=== PATIENT | male | born 1940 | race Caucasian/White ===

== ENCOUNTER → 2017-10-31 | Outpatient (CLI) | payer MEDICARE, BC ==
[~2017-10-31] MED LIST: CHOL200074 PO; ESOM20CA31 PO; GINK40CA PO; MULT-1203 PO; NEX40PT PO; TAMS0.4C70 PO; VARD20TA31 PO; ZINC30TA5 PO
[2017-10-31 09:22] LABS: PLATELET COUNT, AUTOMATED 202 K/uL (150-450)
[2017-10-31 11:54] LABS: LDL CHOLESTEROL 102 mg/dl
== END ==
LOC: LAB 08:41
PROVIDERS: ATTEND Internal Medicine
DX: Z12.5 Encounter for screening for malignant neoplasm of prostate (principal); N40.0 Benign prostatic hyperplasia without lower urinary tract symptoms; R19.7 Diarrhea, unspecified; K21.9 Gastro-esophageal reflux disease without esophagitis; E78.5 Hyperlipidemia, unspecified
CPT/HCPCS: 36415; 81001; 82274; 82306; 83630; 84443; 85025; 87045; 87177; 87205; 87324; 87449; G0103; 82040; 82247; 82310; 82374; 82435; 82465; 82565; 82947; 83718; 84075; 84132; 84153; 84155; 84295; 84450; 84460; 84478; 84520

== ENCOUNTER → 2018-05-29 | Outpatient (CLI) | payer MEDICARE, BC ==
[~2018-05-29] MED LIST changes: +DOXY-179 PO; +NYST15CR33 TP
[2018-05-29 09:19] LABS: PLATELET COUNT, AUTOMATED 199 K/uL (150-450)
--- NOTE | 2018-05-29 10:36 | RADIOLOGY IMAGING REPORT ---
FACILITY: [facility] PATIENT NAME: Colton Gunderson : 1940 MR: [id number] V: [id number] EXAM DATE: ORDERING PHYSICIAN: JONAS DOBSON TECHNOLOGIST: Location: [facility] - [place] Patient: Colton Gunderson : 1940 Visit/Account:[id number] Date of Sevice: 05/29/2018 TOE RIGHT FOOT GREAT TOE HISTORY: cellulitis rt. big toe Additional history: None COMPARISON: None. FINDINGS: Three views right first toe. Osseous structures are unremarkable. No radiographic evidence of osteo myelitis. There is advanced joint space narrowing at the first MTP joint with associated osteophytos is. Soft tissues are unremarkable without evidence of air within the soft tissues. IMPRESSION: Right first MTP osteoarthropathy. No acute pathology identified. Report Dictated By: Piyush Carballo MD at 05/29/2018 10:30 AM Report E-Signed By: Piyush Carballo MD at 05/29/2018 10:32 AM WSN:[id number]
== END ==
LOC: LAB 08:52
PROVIDERS: ATTEND Internal Medicine
DX: M19.071 Primary osteoarthritis, right ankle and foot (principal)
CPT/HCPCS: 36415; 82040; 82247; 82310; 82374; 82435; 82565; 82947; 84075; 84132; 84155; 84295; 84450; 84460; 84520; 84550; 85025; 85651; 86140

== ENCOUNTER → 2018-10-10 | Outpatient (CLI) | payer MEDICARE, BC ==
[~2018-10-10] MED LIST changes: +MELO-207 PO; +PRED-420 PO; +TAMS0.4C25 PO
[2018-10-10 10:10] LABS: PLATELET COUNT, AUTOMATED 197 K/uL (150-450)
[2018-10-10 10:23] LABS: LDL CHOLESTEROL 104 mg/dl
--- NOTE | 2018-10-10 10:51 | EKG ---
[place] [facility] [place] NAME: ATUL PRINCE : [id number] MR: [id number] V: [id number] EXAM DATE: ORDERING PHYSICIAN: JONAS DOBSON TECHNOLOGIST: [place] Test Reason : SOB Blood Pressure : / mmHG Vent. Rate : 050 BPM Atrial Rate : 050 BPM P-R Int : 394 ms QRS Dur : 110 ms QT Int : 462 ms P-R-T Axes : 041 -59 009 degrees QTc Int : 421 ms Sinus bradycardia with 1st degree AV block Left anterior fascicular block Septal infarct , age undetermined Abnormal ECG No previous ECGs available Confirmed by JONAS DOBSON ([id number]) on 10/15/2018 3:45:17 PM Referred By: MAVERICK Confirmed By:JONAS DOBSON
--- NOTE | 2018-10-10 11:12 | RADIOLOGY IMAGING REPORT ---
FACILITY: [facility] - [place] PATIENT NAME: Colton Gunderson : 1940 MR: [id number] V: [id number] EXAM DATE: ORDERING PHYSICIAN: JONAS DOBSON TECHNOLOGIST: Location[place] [facility] [place] Patient: Colton Gunderson : 1940 Visit/Account:[id number] Date of Sevice: 10/10/2018 Exam type: TOE RIGHT FOOT GREAT TOE History: redness rt big toe Comparison: May 29, 2018. Findings: Three views were submitted. Severe joint space narrowing at the right first MTP joint again noted. There is mild surrounding soft tissue swelling. There is mild to moderate narrowing of the IP joint right great toe appearing similar to the prior study with mild subchondral erosions seen on both side s of the joint space. There is no plain film evidence of osteomyelitis IMPRESSION: 1. 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 There is mild soft tissue swelling present which can be seen with gout although given the severe joint space narrowing osteophyte arthritis wou ld be a more likely diagnosis Mild to moderate posterior arthritis of the IP joint right great toe also noted Report Dictated By: Chelsey Mcdaniels MD at 10/10/2018 11:01 AM Report E-Signed By: Chelsey Mcdaniels MD at 10/10/2018 11:04 AM WSN:[email or web address]
== END ==
LOC: LAB 09:43
PROVIDERS: ATTEND Internal Medicine
DX: R00.1 Bradycardia, unspecified (principal); R94.31 Abnormal electrocardiogram [ECG] [EKG]; M10.9 Gout, unspecified; M19.071 Primary osteoarthritis, right ankle and foot
CPT/HCPCS: 36415; 82040; 82247; 82310; 82374; 82435; 82465; 82565; 82947; 83718; 83880; 84075; 84132; 84153; 84155; 84295; 84443; 84450; 84460; 84478; 84520; 84550; 85025; 85651; 86140; 86200; 86430

== ENCOUNTER → 2018-10-17 | Outpatient (CLI) | payer MEDICARE, BC ==
--- NOTE | 2018-10-18 21:22 | RT HOLTER TEST ---
FACILITY: [facility] - [place] PATIENT NAME: ATUL PRINCE : [id number] MR: [id number] V: [id number] EXAM DATE: ORDERING PHYSICIAN: JONAS DOBSON TECHNOLOGIST: MICHAEL Hook-up date: 2018-10-17 08:07:00 Duration: 25:30:00 Test Indications: BRADYCARDIA Medications: N/A 28148 QRS complexes 419 Ventricular ectopics which represent <1 % of total QRS comp. 316 Supraventricular ectopics which represent <1 % of total QRS comp. * Paced QRS complexes which represent % of total QRS comp. VENTRICULAR ECTOPY 387 Isolated 0 Bigeminal Cycles 16 Couplets 0 Runs 0 Beats in Runs * Beats LONGEST at * BPM at :: -- * Beats FASTEST at * BPM at :: -- SUPRAVENTRICULAR ECTOPY 280 Isolated 16 Couplets 1 Runs 4 Beats in Runs 4 Beats LONGEST at 91 BPM at 06:12:40 2018-10-18 4 Beats FASTEST at 91 BPM at 06:12:40 2018-10-18 HEART RATES 34 MIN at 04:10:05 2018-10-18 63 AVG 109 MAX at 11:44:44 2018-10-17 LONGEST RR 2.456 secs at 05:07:02 2018-10-18 S-T LEVELS Channel 1 -12.800 mm MIN at 08:07:00 2018-10-17 -12.800 mm MAX at 08:07:00 2018-10-17 Channel 2 -12.800 mm MIN at 08:07:00 2018-10-17 -12.800 mm MAX at 08:07:00 2018-10-17 Channel 3 -12.800 mm MIN at 08:07:00 2018-10-17 -12.800 mm MAX at 08:07:00 2018-10-17 Sinus rhythym dominates study including periods of significant sinus bradycardia. Appears to have 1st degree AV block though this would be better evaluated with 12 lead EKG. Occasional PVC Occasional SVE. Pt reported events correspond with heart rates 59 and 63 BPM/ Likely positive Holter study. Confirmed by Stevie Singh ([id number]) on 10/18/2018 9:18:22 PM Referred By: Overread By: Stevie Chow
== END ==
LOC: RESP 02:12
PROVIDERS: ATTEND Internal Medicine
DX: R00.1 Bradycardia, unspecified (principal); R94.31 Abnormal electrocardiogram [ECG] [EKG]
CPT/HCPCS: 93225; 93226